=== PATIENT | male | born 1975 | race Caucasian/White ===

== ENCOUNTER 2018-01-18 09:54 | Day surgery (SDC) | payer OTHER ==
[~2018-01-18] VITALS: Ht 177.8 cm; Wt 105.2 kg
[~2018-01-18 09:54] MED LIST: Flonase 0.05% N16 GM; HYDCHL12.5 PO; Zantac150 MG PO
== END 2018-01-18 23:21 | disposition home or self-care (01) ==
LOC: ORSCMMR 09:54 → ORSCSDS 11:15 → ORSCMMR 23:21
PROVIDERS: Internal Medicine Gastroenterology
PROC: 0DB68ZX Excision of Stomach, Via Natural or Artificial Opening Endoscopic, Diagnostic (ICD-10-PCS; principal; 2018-01-18 12:45)
DX: K21.9 Gastro-esophageal reflux disease without esophagitis (principal); L53.9 Erythematous condition, unspecified; E66.9 Obesity, unspecified; Z68.33 Body mass index [BMI] 33.0-33.9, adult; Z79.899 Other long term (current) drug therapy
CPT/HCPCS: J7120